=== PATIENT | male | born 1945 | race Caucasian/White ===

== ENCOUNTER → 2018-06-17 14:43 | Outpatient (CLI) | payer MEDICARE, OTHER ==
[2009-07-15 07:54] VITALS: BMI 33.9
== END | disposition home or self-care (01) ==
LOC: D.MRI 14:43
DX: M54.5 Low back pain (principal); Z87.891 Personal history of nicotine dependence

== ENCOUNTER → 2018-10-01 11:22 | Outpatient (CLI) | payer MEDICARE, OTHER ==
[2009-07-15 07:54] VITALS: BMI 33.9
[2018-10-01 12:26] LABS: BASOPHILS 0.3 % (0-2); EOSINOPHILS 1.5 % (0-7); HEMATOCRIT 38.2 % (42.0-54.0); HEMOGLOBIN 12.7 g/dL (13.5-17.5); IMMATURE GRANULOCYTES 0.7 % (0-5); LYMPHOCYTES 14.3 % (15-50); MCH 28.7 pg (26.0-34.0); MCHC 33.2 g/dL (31.0-37.0); MCV 86.4 fL (80.0-100.0); MEAN PLATELET VOLUME 10.1 fL (7.4-10.4); MONOCYTES 7.7 % (2-11); NEUTROPHILS 75.5 % (40-80); PLATELET COUNT 112 10x3/uL (130-400); RBC 4.42 10x6/uL (4.20-6.10); RDW 13.4 % (11.5-14.5); WBC 6.8 10x3/uL (4.8-10.8)
[2018-10-01 12:41] LABS: INR 1.07 (0.85-1.17); PROTIME 13.4 SECONDS (11.6-15.0)
[2018-10-01 12:59] LABS: ALBUMIN 3.8 g/dL (3.4-5.0); ANION GAP 7.9 mmol/L (8-16); BILIRUBIN - TOTAL 0.57 mg/dL (0.2-1.3); CALCIUM 9.1 mg/dL (8.5-10.1); CARBON DIOXIDE 31.1 mmol/L (21.0-32.0); CREATININE - SERUM 1.3 mg/dL (0.6-1.3); PROTEIN - SERUM 7.2 g/dL (6.4-8.2)
== END | disposition home or self-care (01) ==
LOC: D.LAB 11:22
PROVIDERS: ATTEND Urology
DX: N40.1 Benign prostatic hyperplasia with lower urinary tract symptoms (principal); N13.30 Unspecified hydronephrosis; C64.9 Malignant neoplasm of unspecified kidney, except renal pelvis

== ENCOUNTER 2018-10-29 10:44 | Outpatient (CLI) | payer MEDICARE, OTHER ==
[~2018-10-29] VITALS: Ht 175.3 cm; Wt 95.5 kg
[2018-10-29 11:01] LABS: BASOPHILS 0.4 % (0-2); EOSINOPHILS 2.4 % (0-7); HEMATOCRIT 36.5 % (42.0-54.0); HEMOGLOBIN 12.4 g/dL (13.5-17.5); IMMATURE GRANULOCYTES 1.4 % (0-5); LYMPHOCYTES 19.1 % (15-50); MCH 29.4 pg (26.0-34.0); MCV 86.5 fL (80.0-100.0); MEAN PLATELET VOLUME 11.2 fL (7.4-10.4); MONOCYTES 9.7 % (2-11); RBC 4.22 10x6/uL (4.20-6.10)
[2018-10-29 11:04] LABS: PLATELET COUNT 160 10x3/uL (130-400)
[2018-10-29 11:07] LABS: ANION GAP 9.9 mmol/L (8-16); CALCIUM 8.6 mg/dL (8.5-10.1); CARBON DIOXIDE 30.6 mmol/L (21.0-32.0); CREATININE - SERUM 1.2 mg/dL (0.6-1.3); POTASSIUM - SERUM 4.5 mmol/L (3.5-5.1)
[2018-10-29 11:12] LABS: APTT 24.7 SECONDS (22.8-39.4); INR 1.04 (0.85-1.17); PROTIME 13.1 SECONDS (11.6-15.0)
[2018-10-29] MEDS ORDERED: COREG25 MG PO ×2 (11:56)
[2018-10-29] MEDS ORDERED: COZAAR50 MG PO (11:56)
[2018-10-29] MEDS ORDERED: FISH OIL 1,0001 CA1 PO (11:57)
[2018-10-29] MEDS ORDERED: BAYER CHEWABLE81 MG PO (11:57)
[2018-10-29] MEDS ORDERED: LISINOPRIL10 MG PO (11:57)
[2018-10-29 12:12] VITALS: BP 149/62; Ht 175.3 cm; Wt 95.5 kg
--- NOTE | 2018-10-29 13:51 | NUR ---
1345 RETURNED TO 2511 PROCEDURE WAS CANCELLED DUE TO PT HAS NOT BEEN OFF ASPRIN. IV DC'D WITH CATH INTACT. FLUIDS OFFERED AND DECLINED. RELEASED AMBULATORY WITH . MADINA RETURNED TO PT.
== END 2018-10-29 13:50 | disposition home or self-care (01) ==
LOC: D.SP 10:44 → D.RAD 14:00
PROVIDERS: Radiology Diagnostic Radiology; ATTEND Urology
DX: R19.00 Intra-abdominal and pelvic swelling, mass and lump, unspecified site (principal); Z53.8 Procedure and treatment not carried out for other reasons; Z01.812 Encounter for preprocedural laboratory examination

== ENCOUNTER 2018-11-06 05:55 | Outpatient (CLI) | payer MEDICARE, OTHER ==
[~2018-11-06] VITALS: Ht 175.3 cm; Wt 90.7 kg
[~2018-11-06 05:55] MED LIST: BAYER CHEWABLE81 MG PO; COREG25 MG PO; COZAAR50 MG PO; FISH OIL 1,0001 CA1 PO; LISINOPRIL10 MG PO
[2018-11-06 06:17] LABS: BASOPHILS 0.6 % (0-2); EOSINOPHILS 2.6 % (0-7); HEMATOCRIT 37.4 % (42.0-54.0); HEMOGLOBIN 12.7 g/dL (13.5-17.5); IMMATURE GRANULOCYTES 0.7 % (0-5); LYMPHOCYTES 18.9 % (15-50); MCH 29.1 pg (26.0-34.0); MCV 85.6 fL (80.0-100.0); MEAN PLATELET VOLUME 11.6 fL (7.4-10.4); MONOCYTES 9.8 % (2-11); NEUTROPHILS 67.4 % (40-80); PLATELET COUNT 169 10x3/uL (130-400); RBC 4.37 10x6/uL (4.20-6.10); RDW 13.7 % (11.5-14.5); WBC 5.4 10x3/uL (4.8-10.8)
[2018-11-06 06:27] LABS: APTT 26.8 SECONDS (22.8-39.4); INR 1.08 (0.85-1.17); PROTIME 13.5 SECONDS (11.6-15.0)
[2018-11-06 06:41] LABS: ANION GAP 12.3 mmol/L (8-16); CALCIUM 8.7 mg/dL (8.5-10.1); CREATININE - SERUM 1.2 mg/dL (0.6-1.3); POTASSIUM - SERUM 4.3 mmol/L (3.5-5.1)
[2018-11-06 06:50] VITALS: BP 125/65; BMI 29.6
--- NOTE | 2018-11-06 10:03 | NUR ---
0925-RECD FROM IR. DROWSY BUT AROUSES EASILY. DENIES PAIN.
--- NOTE | 2018-11-06 12:45 | NUR ---
1200-UP TO BATHROOM, VOIDS. AMBULATES IN ROOM. IV D/C 1230-DISCHARGE INSTRUCTIONS REVIEWED. DENIES PAIN, DRESSING CLEAN, DRY AND INTACT. 1235-D/C HOME WITH VIA WHEELCHAIR
[2018-11-11 13:42] VITALS: BP 125/65; Ht 175.3 cm; Wt 90.7 kg
== END 2018-11-06 12:35 | disposition home or self-care (01) ==
LOC: D.SP 05:55
PROVIDERS: Radiology Vascular & Interventional Radiology; ATTEND Urology
DX: D41.02 Neoplasm of uncertain behavior of left kidney (principal)

== ENCOUNTER 2018-11-13 05:40 | Day surgery (SDC) | payer MEDICARE, OTHER ==
[2018-11-06 07:10] VITALS: BP 125/65; BMI 29.6
[2018-11-11 11:42] LABS: BASOPHILS 0.4 % (0-2); EOSINOPHILS 2.8 % (0-7); HEMATOCRIT 35.7 % (42.0-54.0); HEMOGLOBIN 12.1 g/dL (13.5-17.5); IMMATURE GRANULOCYTES 0.6 % (0-5); LYMPHOCYTES 14.9 % (15-50); MCH 29.2 pg (26.0-34.0); MCHC 33.9 g/dL (31.0-37.0); MEAN PLATELET VOLUME 11.1 fL (7.4-10.4); MONOCYTES 11.5 % (2-11); NEUTROPHILS 69.8 % (40-80); PLATELET COUNT 150 10x3/uL (130-400); RBC 4.15 10x6/uL (4.20-6.10); RDW 13.6 % (11.5-14.5)
[2018-11-11 11:58] LABS: ANION GAP 10.8 mmol/L (8-16); APTT 27.7 SECONDS (22.8-39.4); CALCIUM 8.7 mg/dL (8.5-10.1); CARBON DIOXIDE 28.8 mmol/L (21.0-32.0); CREATININE - SERUM 1.3 mg/dL (0.6-1.3); INR 1.09 (0.85-1.17); POTASSIUM - SERUM 4.6 mmol/L (3.5-5.1); PROTIME 13.6 SECONDS (11.6-15.0)
[2018-11-13 06:19] VITALS: BP 141/67; BMI 32.1
--- NOTE | 2018-11-13 09:14 | NUR ---
0910 DR. DEAN ROUNDS ON PT.
--- NOTE | 2018-11-13 09:23 | NUR ---
0920 UP TO BR VOIDS QS. FL DIET SERVED.
--- NOTE | 2018-11-13 09:49 | OP ---
PATIENT NAME: EUGENIA GUTIERREZ MEDICAL RECORD: [id number] :45 LOCATION:.[facility] [place] [place] ADMISSION DATE: SURGEON: PAULO DEAN MD DATE OF OPERATION: 11/13/2018 SURGEON: Paulo Dean MD ANESTHESIA: TIVA by Neel Humphries CRNA DIAGNOSIS: Elevated PSA of 3.17 on finasteride, bladder outlet obstruction with right hydronephrosis. PROCEDURES: Cystoscopy, transrectal ultrasound and prostate biopsy. FINDINGS: Obstructive lateral lobes, very tall bladder neck that I could barely get the scope through. Large prostate of 140 grams on transrectal ultrasound with some intraprostatic stones, no hypoechoic areas. PROCEDURE: Cystoscopy and transrectal ultrasound and prostate biopsy. SPECIMENS: Prostate biopsy cores. BLOOD LOSS: Minimal. CLINICAL HISTORY: This is a 72-year-old male, who has previously had a left nephrectomy for renal cell carcinoma. The latest CT scan shows a left retroperitoneal mass in the left renal fossa. I had this biopsied and it turned out to be normal renal tissue without any cancer. He has obstructive voiding symptoms even though he has been on finasteride and Flomax. He has now started to develop a mild right hydronephrosis. Serum PSA was 3.17 on finasteride and tamsulosin. His IPSS score is 17 and quality of life score is 2 on both these medications. The PSA is typically halved when the patient is on finasteride, thus his corrected PSA if he was not on finasteride would be 6.34. Therefore, we are proceeding with a prostate biopsy. HE IS ALLERGIC TO SULFA AND SHELLFISH. He was given Ancef contract runner to the OR. DESCRIPTION OF PROCEDURE: The patient was given IV sedation. He was then placed in the lithotomy position and prepped and draped. A 21-Vincentian cystoscope was used for visualization. The lateral lobes are obstructive towards the base of the prostate. The bladder neck is extremely tall and I could not deflect the scope sufficiently in order to enter into the bladder itself. We then removed the cystoscope. The transrectal ultrasound probe was introduced. The prostate was extremely large in size. We first had an estimate of 148 grams, then a second estimate was 135 grams, so roughly he is somewhere around 140 grams by averaging. Sextant biopsies were obtained of at least 3 cores from each sextant. Once all the specimens were obtained, then the procedure was terminated. I will see the patient in followup next week to review his pathology. If the pathology is benign, then he will probably need a TURP due to the excessively large size of his prostate. TRANSINT:[id number] Voice Confirmation ID: [id number] DOCUMENT ID: [id number] OPERATIVE REPORT [id number] EUGENIA GUTIERREZ, PAULO Adams MD at 0949 CC: [id number] DICTATION DATE: 11/13/18907 DELIVERY DEPARTMENT SUPERVISOR: 11/13/189[address] [facility] [place] 11/13/18 [id number] [place] [address]
== END 2018-11-13 09:45 | disposition home or self-care (01) ==
LOC: D.OPS 05:40 → D.PAN 07:30 → D.OPS 08:00 → D.PAN 08:15 → D.OPS 09:45 → D.PAN 10:50 → D.OPS 11:30 → D.PAN 11:30 → D.OPS 11:40
PROVIDERS: Anesthesiology; ATTEND Urology
DX: N42.0 Calculus of prostate (principal); N40.1 Benign prostatic hyperplasia with lower urinary tract symptoms; N13.8 Other obstructive and reflux uropathy; N13.30 Unspecified hydronephrosis; N41.1 Chronic prostatitis; Z85.528 Personal history of other malignant neoplasm of kidney; Z90.5 Acquired absence of kidney; Z01.812 Encounter for preprocedural laboratory examination

== ENCOUNTER → 2018-12-15 16:09 | Outpatient (CLI) | payer MEDICARE, OTHER ==
[2018-12-15 16:33] LABS: CREATININE - SERUM 1.5 mg/dL (0.6-1.3)
== END | disposition home or self-care (01) ==
LOC: D.LABREF 16:09
PROVIDERS: ATTEND Internal Medicine Interventional Cardiology
DX: N28.9 Disorder of kidney and ureter, unspecified (principal)

== ENCOUNTER → 2018-12-18 08:39 | Outpatient (CLI) | payer MEDICARE, OTHER ==
[~2018-12-18 08:39] MED LIST changes: +LIPITOR40 MG PO; +NORVASC5 MG PO; +PLAVIX75 MG PO; +PROZAC10 MG PO
== END | disposition home or self-care (01) ==
LOC: D.CT 08:39
PROVIDERS: ATTEND Internal Medicine Interventional Cardiology
DX: I70.213 Atherosclerosis of native arteries of extremities with intermittent claudication, bilateral legs (principal)

== ENCOUNTER 2018-12-31 08:53 | Outpatient (CLI) | payer MEDICARE, OTHER ==
[~2018-12-31] VITALS: Ht 175.3 cm; Wt 90.9 kg
--- NOTE | ~2018-12-31 | OP ---
PATIENT NAME: EUGENIA GUTIERREZ MEDICAL RECORD: [id number] :45 LOCATION:[facility] ADMISSION DATE: SURGEON: ANT ALFORD MD DATE OF OPERATION: 12/31/2018 PROCEDURES: 1. Stent placement SFA, right. 2. LIFE INSURANCE UNDERWRITER SFA, right. 3. Aortofemoral runoff. 4. Abdominal aortography. INDICATION: Claudication, [place] class IV peripheral vascular disease. PROCEDURE IN DETAIL: After informed consent was obtained and after a detailed description of risks, benefits as well as alternative therapies, the patient elected to proceed with angiogram and angioplasty. The left femoral area was prepped and draped in normal sterile fashion. Left femoral artery was cannulated via modified Seldinger technique with placement of 6-Malay sheath. All catheters exchanged through this sheath. FINDINGS: Abdominal aortography was performed. The catheter was pulled down for aortofemoral runoff. Abdominal aortography reveals no significant abdominal aortic disease, no dissection or aneurysm formation. RIGHT LEG: A. Iliac: The common internal and external iliacs have moderate irregularities, but no flow-limiting stenosis. B. Femoral system: The common femoral is in place with what appears to be a [place]-Jeb graft. This is widely patent. Deep femorals are widely patent. Superficial femoral has 2 areas in the mid vessel 70% stenosis. C. Popliteal and infrapopliteal vessels are patent with good 3-vessel runoff to the foot. LEFT LEG: A. Iliac: The common internal and external iliacs have moderate irregularities, but no flow-limiting stenosis. B. Femoral system: The common and deep femoral are widely patent. Superficial femoral has an area of 70% stenosis in the mid distal vessel. Popliteal and infrapopliteal vessels are patent giving 3-vessel runoff to the foot, although diffusely diseased. LIFE INSURANCE UNDERWRITER STENT OF THE RIGHT SFA: The balloon used was a 6 x 80 balloon. This yielded suboptimal result with severe intimal dissection. Stenting was undertaken with a 7 x 120 SMART stent. Result was 0% residual stenosis. OVERALL IMPRESSION: Successful LIFE INSURANCE UNDERWRITER stent of the right SFA going from 70% initial stenosis to 0% residual. TRANSINT:[id number] Voice Confirmation ID: [id number] DOCUMENT ID: [id number] OPERATIVE REPORT [id number] EUGENIA GUTIERREZ JEFFREY MD CC: [id number] DICTATION DATE: 12/31/18 1200 GEARMAN: 12/31/18 1209 [facility] 0 [facility], [facility]
--- NOTE | ~2018-12-31 | HEMODYNAMI ---
PATIENT:EUGENIA GUTIERREZ MEDICAL RECORD: [id number] : 45 LOCATION:[facility] ADMISSION DATE: 12/31/18 Generatedon:12/31/201811:39 Patient name: EUGENIA GUTIERREZ Patient #: [id number] SSN: [id number] : 1945 Date of study: 12/31/2018 Page: Of Hemodynamic Procedure Report Patient Data Patient Demographics Procedure consent was obtained First Name: EUGENIA Gender: Male Last Name: BRENDA : 1945 Patient #: [id number] Age: 73 year(s) Race: SSN: [id number] Additional ID: [id number] Contact details [address]: [address] [place] [address] COURT State: [place] City: [place] Zip code: [address] Past Medical History Allergies Allergen Reaction Date Comments Reported Other allergy 12/31/2018 shellfish, sulfa Admission Admission Data Admission Date: 12/31/2018 Admission Time: 8:53 Admit Source: Other Lab Results Lab Result Date: 12/31/2018 Lab Result Time: 9:40 Biochemistry Name Units Result Min Max BUN mg/dl 15 --(--*-)-- 7 18 Creatinine mg/dl 1.5 --(----)-* 0.6 1.3 CBC Name Units Result Min Max Hematocrit % 39.8 -*(----)-- 42 54 Hemoglobin g/dl 13.3 -*(----)-- 13.5 17.5 Procedure Procedure Types Cath Procedure Diagnostic Procedure Sedation Charges Moderate Sedation up to 15 minutes Peripheral Cath Diagnostic Procedure Public Policy Analyst Peripheral Procedures Awksd-Fnlewzn-Sro-Off Peripheral vascular Intervention Stent Stent-Fem/Popw/plasty Procedure Description Procedure Date Procedure Date: 12/31/2018 Procedure Start Time: 11:07 Procedure End Time: 11:32 Procedure Staff Name Function Obed Pizarro MD Performing Physician Alon Sánchez RT Monitor Nahum Miller RT Scrub Zackary Lorigan RN Nurse Procedure Data Cath Procedure Fluoroscopy Diagnostic fluoroscopy Total fluoroscopy Time: 5.1 time: 5.1 min min Diagnostic fluoroscopy Total fluoroscopy dose: 204 dose: 204 mGy mGy Contrast Material Contrast Material Type Amount (ml) Isovue 300 92 Entry Location Entry Primary Successful Side Size Upsize 1 Upsize Entry Closure Barakat ccessful Closure Location (Fr) (Fr) 2 (Fr) Remarks Device Remarks Femoral Left 5 Fr 6 Fr 6 Fr Exoseal artery Mid-Length Short Estimated blood loss: 10 ml Diagnostic catheters Device Type Used For End Catheter Placement DIAGNOSTIC UF 5Fr Procedure catheter ([id number]) DIAGNOSTIC MPA-2 5Fr Procedure catheter ([id number]) Procedure Complications No complications Procedure Medications Medication Administration Route Dosage 0.9% NaCl I.V. 100 ml/hr Oxygen etCO2 Nasal cannula 2 l/min Heparin Flush Bag added to field 2 bags (1000units/500ml NS) Lidocaine 2% added to field 20 Versed I.V. 2 mg Fentanyl I.V. 100 mcg Heparin Bolus I.V. 4000 units Integrilin (Bolus I.V. 8.5 ml 2mg/ml) Integrilin (Bolus wasted 1.5 ml 2mg/ml) Plavix P.O. 600 mg Hemodynamics Rest HGB: 13.3 (g/dl) Heart Rate: 72 (bpm) Snapshots Pre Cath Intra NCS Post Cath Vital Signs Time Heart Resp SPO2 etCO2 NIBP (mmHg) Rhythm Pain Sedation Rate (ipm) (%) (mmHg) Status Level (bpm) 10:52:30 72 10 100 35.8 158/76(128) NSR 0 (11) 10(A) , No pain 10:57:56 74 17 99 33.6 154/76(119) NSR 0 (11) 10(A) , No pain 11:02:18 71 14 96 34.3 144/68(106) NSR 0 (11) 10(A) , No pain 11:06:40 71 15 95 32.8 137/66(102) NSR 0 (11) 10(A) , No pain 11:10:46 73 14 97 35.1 110/68(101) NSR 0 (11) 9(A) , No pain 11:15:57 71 13 98 133/65(100) NSR 0 (11) 9(A) , No pain 11:20:26 70 13 98 114/65(109) NSR 0 (11) 9(A) , No pain 11:24:50 71 13 97 35.1 123/57(90) NSR 0 (11) 10(A) , No pain 11:29:14 69 12 98 25.4 138/63(105) NSR 0 (11) 10(A) , No pain 11:33:38 71 15 98 26.9 140/71(112) NSR 0 (11) 10(A) , No pain Medications Time Medication Route Dose Verified Delivered Reason Notes Effectiveness by by 10:54:44 0.9% NaCl I.V. 100 Zackary Zackary Per physician ml/hr Monica Anderson RN RN 10:55:01 Oxygen etCO2 2 Zackary Zackary for low 02 sats Nasal l/min Monica Anderson cannula RN RN 10:55:12 Heparin Flush added 2 Zackary Zackary used for Bag to bags Monica Anderson procedure (1000units/500ml RN RN NS) 10:55:26 Lidocaine 2% added 20ml Zackary Zackary for local to vial Monica Anderson anesthetic RN RN 11:05:40 Versed I.V. 2 mg Zackary Zackary for sedation Monica Anderson RN RN 11:05:51 Fentanyl I.V. 100 Zackary Zackary for sedation mcg Monica Anderson RN RN 11:20:46 Heparin Bolus I.V. 4000 Zackary Zackary for units Monica Anderson anticoagulation RN RN 11:21:08 Integrilin I.V. 8.5 Zacakry Zackary for (Bolus 2mg/ml) ml Monica Anderson antiplatelet RN RN therapy 11:21:20 Integrilin wasted 1.5 Zackary Zackary to sharp's (Bolus 2mg/ml) ml Monica Anderson RN RN 11:31:41 Plavix P.O. 600 Zackary Zackary for mg Monica Anderson antiplatelet RN RN therapy Procedure Log Time Note 10:25:01 Nahum CASTREJON(R) (CV) sent for patient. Start room use. 10:37:17 Informed consent obtained and on chart 10:44:43 Admit Source: Other 10:44:59 Procedure Status Peripheral. 10:45:33 Time tracking: Regular hours (M-F 7:00 - 5:00) 10:45:44 Plan of Care:Hemodynamics will remain stable., Cardiac rhythm will remain stable., Comfort level will be maintained., Respiratory function will remain adequate., Patient/ family verbilizes understanding of procedure., Procedure tolerated without complication., Recovers from procedure without complications.. 10:45:47 Patient received from Pre/Post Procedure Room to CCL 1 Alert and oriented. Tansferred to table in Supine position. 10:45:49 Warm blankets applied, and aguila hugger turned on for patient comfort. 10:45:50 Correct patient and procedure confirmed by team. 10:45:50 ECG and BP/O2 sat monitors applied to patient. 10:45:51 Pre-procedure instructions explained to patient. 10:45:52 Pre-op teaching completed and patient verbalized understanding. 10:51:12 Baseline sample Acquired. 10:51:12 Vital chart was started 10:51:14 Rhythm: sinus rhythm 10:51:16 Full Disclosure recording started 10:51:25 H&P Date Dictated: 12/15/2018 Within 30 days and on chart., H&P Addendum completed by physician on day of procedure. (MUST COMPLETE FOR ALL OUTPATIENTS). 10:51:27 Family in waiting room. 10:51:29 Patient NPO since Midnight. 10:51:40 Patient allergic to Other allergyshellfish, sulfa 10:51:41 Is the patient allergic to Iodine/contrast media? Yes. 10:51:47 Was the patient premedicated? Yes 10:54:44 0.9% NaCl 100 ml/hr I.V. was administered by Zackary Anderson RN; Per physician; 10:55:01 Oxygen 2 l/min etCO2 Nasal cannula was administered by Zackary Anderson RN; for low 02 sats; 10:55:12 Heparin Flush Bag (1000units/500ml NS) 2 bags added to field was administered by Zackary Anderson RN; used for procedure; 10:55:26 Lidocaine 2% 20ml vial added to field was administered by Zackary Anderson RN; for local anesthetic; 10:56:21 Is patient on blood thinner?No 10:58:23 Patient diabetic? No. 10:58:28 Previous problem with sedation/anesthesia? No ? 10:58:31 Snore? Yes 10:58:32 Sleep apnea? No 10:58:33 Deviated septum? No 10:58:33 Opens mouth fully? Yes 10:58:34 Sticks out tongue? Yes 10:58:36 Airway obstruction? No ? 10:58:39 Dentures? No . 10:58:43 Pre procedure: right dorsailis pedis pulse Doppler 10:58:45 Pre procedure: left dorsailis pedis pulse Doppler 10:58:47 Patient pain scale 0/10 ?. 10:58:53 IV patent on arrival in left forearm with 0.9% NaCl at [facility]. 10:59:22 Lab Result : BUN 15 mg/dl 10:59:22 Lab Result : Creatinine 1.5 mg/dl 10:59:22 Lab Result : Hemoglobin 13.3 g/dl 10:59:22 Lab Result : Hematocrit 39.8 % 10:59:23 Lab results completed and on chart. 10:59:29 Left groin area was prepped with chlora-prep and draped in sterile fashion 10:59:30 Alarms reviewed by R. N. 10:59:30 Sharps counted by scrub and verified by R.N. 10:59:37 ACIST Syringe (33964) opened to sterile field. 10:59:37 Bag Decanter (2002S) opened to sterile field. 10:59:38 Medline Cath Pack ([id number]) opened to sterile field. 10:59:39 ACIST Hand Control (20072) opened to sterile field. 10:59:39 ACIST Manifold (05742) opened to sterile field. 10:59:41 Tegaderm 4 x 4 (1626W) opened to sterile field. 10:59:43 EMERALD Guide Wire (447-899) opened to sterile field. 10:59:43 SHEATH 5FR [place] (TRM849) opened to sterile field. 11:03:04 Zero performed for pressure channel P1 11:04:59 Physician arrived 11:05:00 --------ALL STOP TIME OUT------ 11:05:00 Final Timeout: patient, procedure, and site verified with staff and physician. All members of the team are in agreement. 11:05:02 Left groin site verified by team. 11:05:04 Fire Safety Assessment: A--An alcohol-based skin anteseptic being used preoperatively., C--Open oxygen or nitrous oxide is being used., D--An ESU, laser, or fiber-optic light is being used. 11:05:07 Physical assessment completed. ASA score P 2 - A patient with mild systemic disease as per Obed Pizarro MD. 11:05:16 3a) 45-59 Moderately reduced kidney function. 11:05:34 Maximum allowable contrast dose (3.7 X eGFR X 0.75)136 ml. 11:05:37 Sedation plan: IV Moderate Sedation Medication:Versed, Fentanyl 11:05:40 Versed 2 mg I.V. was administered by Zackary Anderson RN; for sedation; 11:05:51 Fentanyl 100 mcg I.V. was administered by Zackary Anderson RN; for sedation; 11:07:51 Procedure started. 11:07:54 Local anesthetic to left femerol artery with Lidocaine 2% by Obed Pizarro MD.INITIAL ACCESS ONLY 11:09:53 A 5 Fr sheath was inserted into the Left Femoral artery 11:10:03 A DIAGNOSTIC UF 5Fr catheter ([id number]) was advanced over the wire and used for Procedure. 11:10:55 Abdominal angiogram w/ runoff was performed. 11:10:58 Left leg runoff performed. 11:14:38 Right leg runoff performed. 11:14:57 GLIDE WIRE Super Stiff Angled 260cm (MZ2591) opened to sterile field. 11:14:58 SHEATH 6FR Destination (RSR01) opened to sterile field. 11:14:59 INFLATOR Merit BasixCompak (FX9724) opened to sterile field. 11:15:35 glide wire wire advanced around horn. 11:15:45 Catheter removed. 11:15:48 Sheath upsized to a 6 Fr Mid-Length. 11:15:54 SHEATH 6FR [place] (FOA352) opened to sterile field. 11:16:21 CHOICE Floppy Straight 300cm guide wire ([id number]) opened to sterile field. 11:17:35 A DIAGNOSTIC MPA-2 5Fr catheter ([id number]) was advanced over the wire and used for Procedure. 11:18:52 Wire removed. 11:19:42 choice pt es wire advanced. 11:20:46 Heparin Bolus 4000 units I.V. was administered by Zackary Anderson RN; for anticoagulation; 11:21:08 Integrilin (Bolus 2mg/ml) 8.5 ml I.V. was administered by Zackary Anderson RN; for antiplatelet therapy; 11:21:20 Integrilin (Bolus 2mg/ml) 1.5 ml wasted was administered by Zackary Anderson RN; to sharp's; 11:21:56 Inflate balloon Inflation number: 1 A SABER 6.0 x 8 x 150 balloon ([id number]) was prepped and advanced across the Mid Superficial Femoral, Right , then inflated to 9 JOSE for 0:10 (min:sec) . 11:22:00 Inflation number: 2 The SABER 6.0 x 8 x 150 balloon ([id number]) was reinflated across the Mid Superficial Femoral, Right , to 9 JOSE for 0:10 (min:sec) . 11:22:24 Balloon removed over the wire. 11:24:35 SMART 7 X 120 X 120 stent ([id number]) was deployed across Mid Superficial Femoral, Right . 11:26:18 Stent catheter was removed intact over wire. 11:26:55 Inflation number: 3 The SABER 6.0 x 8 x 150 balloon ([id number]) was reinflated across the Mid Superficial Femoral, Right , to 13 JOSE for 0:10 (min:sec) . 11:27:20 Inflation number: 4 The SABER 6.0 x 8 x 150 balloon ([id number]) was reinflated across the Mid Superficial Femoral, Right , to 13 JOSE for 0:10 (min:sec) . 11:27:44 EXOSEAL 6Fr (EX600) opened to sterile field. 11:29:05 Balloon removed over the wire. 11:29:06 Wire removed. 11:29:13 Sheath upsized to a 6 Fr Short. 11:29:21 Sheath removed intact; hemostasis achieved with Exoseal to the Left Femoral artery. 11:29:26 Procedure ended.(Physican Out) 11:29:34 Fluoroscopy time 05.10 minutes. 11:29:37 Flurop Dose total: 204 11::37 Fluoroscopy dose: 204 mGy 11:29:46 Dose Area Product 95774 mGy/cm. 11:29:50 Contrast amount:Isovue 300 92ml. 11:29:52 Maximum allowable dose exceeded? No. 11:30:01 Sharps counted by scrub and verified by R.N. 11:30:01 Insertion/operative site no bleeding no hematoma. 11:30:04 Post-op/insertion site Left Femoral artery dressed using a 4 x 4 and Tegaderm. 11:30:09 Post left femerol artery:stable, soft, clean and dry 11:30:10 Post Procedure Pulses reassessed and unchanged 11:30:34 Post-procedure physical assessment completed. ASA score P 2 - A patient with mild systemic disease as per Obed Pizarro MD. 11:30:45 Post procedure rhythm: unchanged. 11:30:51 Estimated blood loss: 10 ml 11:30:52 Post procedure instruction explained to patient.Patient verbalizes understanding. 11:30:53 Patient needs reinforcement of post procedure teaching. 11:31:41 Plavix 600 mg P.O. was administered by Zackary Anderson RN; for antiplatelet therapy; 11::56 Procedure type changed to Cath procedure, Diagnostic procedure, Sedation Charges, Moderate Sedation up to 15 minutes, Peripheral Cath Diagnostic Procedure, Public Policy Analyst Peripheral Procedures, Sqwqm-Gqbjptm-Wwb-Off, Peripheral vascular Intervention, Stent, Stent-Fem/Popw/plasty 11:32:36 Procedure and supply charges have been captured, reviewed, submitted and are correct. 11:32:38 Procedure Complication : No complications 11:32:40 Vital chart was stopped 11:32:40 See physician's report for complete and final results. 11:32:42 Report given to Pre/Post Procedure Room. 11:32:44 Patient transfered to Pre/Post Procedure Room with Stretcher. 11:32:48 Procedure ended. 11:32:48 Full Disclosure recording stopped 11::56 End room use (Document Last) 11:38:53 Femstop placed over the right femoral artery at 10 mmHg. Hemostasis achieved. Intervention Summary Intervention Notes Time ActionType Lesion and Equipment Action# Pressure Duration Attributes Used 11:21:56 Inflate Mid SABER 6.0 x 1 9 00:10 balloon Superficial 8 x 150 Femoral, balloon Right ([id number]) 11:22:00 Reinflate Mid SABER 6.0 x 2 9 00:10 balloon Superficial 8 x 150 Femoral, balloon Right ([id number]) 11:24:35 Deploy self Mid SMART 7 X 1 expanding Superficial 120 X 120 stent Femoral, stent Right ([id number]) 11:26:55 Reinflate Mid SABER 6.0 x 3 13 00:10 balloon Superficial 8 x 150 Femoral, balloon Right ([id number]) 11:27:20 Reinflate Mid SABER 6.0 x 4 13 00:10 balloon Superficial 8 x 150 Femoral, balloon Right ([id number]) Device Usage Item Name Manufacture Quantity Catalog Hospital Part Current Minima l Lot# / Number Charge Number Stock Stock Serial# Code ACIST Acist 1 60025 110518 264897 688598 20 Syringe Medical (98194) Systems Inc Bag Microtek 1 306114 52437 822032 5 Decanter Medical Inc. () Medline Medline 1 [id number] 490827 74992 384026 5 Cath Pack ([id number]) ACIST Hand Acist 1 59738 430099 819498 986498 5 Control Medical (65380) Systems Inc ACIST Acist 1 57546 626590 334285 576602 5 Manifold Medical (85295) Systems Inc Tegaderm 4 3M 1 1626W 165310 739111 748219 5 x 4 (1626W) EMERALD Cardinal 1 502-455 531091 667775 026763 5 Guide Wire Health (502-455) SHEATH 5FR Terumo 1 WTN893 548189 618051 346572 5 [place] (PAJ218) DIAGNOSTIC Cardinal 1 [id number] 429297 713807 431124 10 UF 5Fr Health catheter (658867Y5) GLIDE WIRE Terumo 1 TM6616 495948 299828 849059 5 Super Stiff Angled 260cm (UF7034) SHEATH 6FR Terumo 1 RSR01 413219 95705 173550 5 Destination (RSR01) INFLATOR Merit 1 NT6738 642167 569416 994463 15 Merit Medical BasixCompak (IZ2570) SHEATH 6FR Terumo 1 QNX586 730534 136619 005766 40 [place] (UEU806) CHOICE [place] 1 [id number] 757334 638280 622694 5 Tivixy Scientific Straight 300cm guide wire (74764644) DIAGNOSTIC Cardinal 1 [id number] 926836 138802 311289 5 MPA-2 5Fr Health catheter (195589E) SABER 6.0 x Cardinal 1 [id number] 034649 256051 098513 5 8 x 150 Health balloon ([id number]) SMART 7 X Cardinal 1 [id number] 944362 964625 796890 0 [id number] 120 X 120 Health stent ([id number]) EXOSEAL 6Fr Cardinal 1 EX600 430689 693624 960393 10 (EX600) Health Signature Audit [place] Stage Time Signature Unsigned Intra-Procedure 12/31/2018 Alon Sánchez 11:39:38 AM RT(R) Signatures Performing Physician : Signature : Obed Pizarro MD Date : Time : Monitor : Alon Sánchez RT Signature : Date : Time : Nurse : Zackary Anderson Signature : RN Date : Time : [address] [address]
[~2018-12-31 08:53] MED LIST changes: -LIPITOR40 MG PO; -NORVASC5 MG PO; -PLAVIX75 MG PO; -PROZAC10 MG PO
[2018-12-31] MEDS ORDERED: LIPITOR40 MG PO (09:23)
[2018-12-31] MEDS ORDERED: NORVASC5 MG PO (09:23)
[2018-12-31] MEDS ORDERED: PROZAC10 MG PO (09:24)
[2018-12-31 09:43] VITALS: BP 128/62; Ht 175.3 cm; Wt 90.9 kg
[2018-12-31 09:57] LABS: HEMATOCRIT 39.8 % (42.0-54.0); HEMOGLOBIN 13.3 g/dL (13.5-17.5); LYMPHOCYTES 6.3 % (15-50); MCH 28.6 pg (26.0-34.0); MCHC 33.4 g/dL (31.0-37.0); MCV 85.6 fL (80.0-100.0); NEUTROPHILS 92.5 % (40-80); RBC 4.65 10x6/uL (4.20-6.10); RDW 13.5 % (11.5-14.5); WBC 7.7 10x3/uL (4.8-10.8)
[2018-12-31 09:59] LABS: PLATELET COUNT 182 10x3/uL (130-400)
[2018-12-31 10:03] LABS: ANION GAP 12.3 mmol/L (8-16); CALCIUM 8.5 mg/dL (8.5-10.1); CARBON DIOXIDE 23.2 mmol/L (21.0-32.0); CREATININE - SERUM 1.5 mg/dL (0.6-1.3); POTASSIUM - SERUM 4.5 mmol/L (3.5-5.1)
--- NOTE | 2018-12-31 11:45 | NUR ---
PT RECEIVED TO ROOM VIA STRETCHER FROM FIRE CONTROL ASSISTANT FOR RECOVERY. PT SLEEPING BUT VERBALLY AROUSABLE. L GROIN W FEMSTOP PRESSURE OF 34 JUST PLACED DUE TO PT MOVING AROUND SO MUCH. DRESSING CDI NO BLEEDING OR SWELLING NOTED. PEDAL PULSES UNABLE TO PALPABLE WILL GET DOPPLER. IV PATENT INFUSING VIA ORDERS. PT INSTRUCTED TO KEEP HEAD ON PILLOW AND L LEG STRAIGHT, HE VERBALIZED UNDERSTANDING. HR 73 W PVC'S NOTED. BP 139/56, O2 SAT 91 ON ROOM AIR. O2 PLACED VIA NC AT 2L. CALL LIGHT IN REACH, NO FAMILY AT BS.
[2018-12-31] MEDS ORDERED: BAYER CHEWABLE81 MG PO (12:03)
[2018-12-31] MEDS ORDERED: PLAVIX75 MG PO (12:03)
--- NOTE | 2018-12-31 12:16 | NUR ---
PT RESTING COMFORTABLY, DENIES PAIN OR DISCOMFORT. L GROIN W FEMSTOP IN PLACE, NO BLEEDING OR SWELLING NOTED. PT HOLDING L LEG STILL W/O PROBLEMS. OFFERED SOMETHING TO DRINK HE SAYS NOT AT THIS TIME. CALL LIGHT IN REACH
--- NOTE | 2018-12-31 13:00 | NUR ---
PT RESTING COMFORTABLY, DENIES PAIN OR NEEDS AT THIS TIME. R GROIN SOFT, DRESSING CDI NO BLEEDING OR SWELLING NOTED. CALL LIGHT IN REACH
--- NOTE | 2018-12-31 13:30 | NUR ---
DR ALFORD AT BEDSIDE, DISSCUSSED W PT PROCEDURE RESULTS AND PLAN OF CARE. PT WILL FOLLOW UP IN CLINIC IN 2 WEEKS. L GROIN SOFT, DRESSING CDI NO BLEEDING OR SWELLING NOTED. LEG PINK AND WARM. HR 72, BP 149/64, 02 SAT 99 ON 2L/NC. PT DENIES PAIN OR NEEDS. CALL LIGHT IN REACH
--- NOTE | 2018-12-31 14:03 | NUR ---
PT AWAKE, WANTING TO SIT UP I EXPLAINED THAT HE CANT YET HE UNDERSTANDS. L GROIN REMAINS SOFT, NO BLEEDING OR SWELLING NOTED. LEG PINK AND WARM. OFFERED A DRINK, HE STILL SAYS HE DOESNT WANT ANYTHING AT THIS TIME. CALL LIGHT IN REACH.
--- NOTE | 2018-12-31 14:30 | NUR ---
L GROIN SOFT, NO BLEEDING OR HEMATOMA NOTED. HOB ELEVATED 30DEGREES. SANDWICH TRAY AND SPRITE SERVED. PT DENIES PAIN OR DISCOMFORT. VSS. CALL LIGHT IN REACH
--- NOTE | 2018-12-31 15:00 | NUR ---
PT DOING WELL, NO C/O. TOLERATED SANDWICH AND DRINK W/O NAUSEA. VSS L GROIN SOFT, DRESSING REMAINS CDI NO BLEEDING OR SWELLING NOTED. VSS.
--- NOTE | 2018-12-31 15:20 | NUR ---
DISCHARGE INSTRUCTIONS REVIWED W PT, HE VERBALIZED UNDERSTANDING AND IMPORTANCE OF STARTING PLAVIX TOMORROW AND TAKING EVERY DAY. IV REMOVED W CATH INTACT, MONITORS REMOVED AND PT UP TO DRESS FOR DISCHARGE.
--- NOTE | 2018-12-31 15:30 | NUR ---
PT AMBULATED TO BR, VOIDING W/O DIFFICULITY. 1535 PT DISCHARGED VIA WC TO PRIVATE VEHICLE WITH ALL BELONGINGS
== END 2018-12-31 15:30 | disposition home or self-care (01) ==
LOC: D.CATH 08:53
PROVIDERS: ATTEND Internal Medicine Interventional Cardiology
DX: I70.213 Atherosclerosis of native arteries of extremities with intermittent claudication, bilateral legs (principal); Z01.812 Encounter for preprocedural laboratory examination

== ENCOUNTER → 2019-06-03 11:20 | Outpatient (CLI) | payer MEDICARE, OTHER ==
[2018-12-31 09:43] VITALS: BMI 29.6
[~2019-06-03 11:20] MED LIST changes: +LIPITOR40 MG PO; +NORVASC5 MG PO; +PLAVIX75 MG PO; +PROZAC10 MG PO
[2019-06-03 11:48] LABS: BASOPHILS 0.4 % (0-2); EOSINOPHILS 2.7 % (0-7); HEMOGLOBIN 11.8 g/dL (13.5-17.5); IMMATURE GRANULOCYTES 0.6 % (0-5); LYMPHOCYTES 20.5 % (15-50); MCH 29.8 pg (26.0-34.0); MCHC 32.8 g/dL (31.0-37.0); MCV 90.9 fL (80.0-100.0); MEAN PLATELET VOLUME 10.7 fL (7.4-10.4); MONOCYTES 9.2 % (2-11); NEUTROPHILS 66.6 % (40-80); PLATELET COUNT 159 10x3/uL (130-400); RBC 3.96 10x6/uL (4.20-6.10); RDW 14.7 % (11.5-14.5); WBC 5.1 10x3/uL (4.8-10.8)
[2019-06-03 12:24] LABS: ALBUMIN 3.6 g/dL (3.4-5.0); ANION GAP 12.9 mmol/L (8-16); BILIRUBIN - DIRECT 0.12 mg/dL (0.00-0.30); BILIRUBIN - INDIRECT 0.4 mg/dL (0.00-1.00); BILIRUBIN - TOTAL 0.52 mg/dL (0.2-1.3); CALCIUM 8.1 mg/dL (8.5-10.1); CARBON DIOXIDE 26.8 mmol/L (21.0-32.0); CREATININE - SERUM 1.2 mg/dL (0.6-1.3); POTASSIUM - SERUM 4.7 mmol/L (3.5-5.1); PROTEIN - SERUM 6.7 g/dL (6.4-8.2)
== END | disposition home or self-care (01) ==
LOC: D.LAB 11:20
PROVIDERS: ATTEND Urology
DX: C64.9 Malignant neoplasm of unspecified kidney, except renal pelvis (principal); N40.0 Benign prostatic hyperplasia without lower urinary tract symptoms

== ENCOUNTER → 2019-06-08 14:03 | Outpatient (CLI) | payer MEDICARE, OTHER ==
[2018-12-31 09:43] VITALS: BMI 29.6
== END | disposition home or self-care (01) ==
LOC: D.CT 14:03
PROVIDERS: ATTEND Urology
DX: Z85.528 Personal history of other malignant neoplasm of kidney (principal)

== ENCOUNTER → 2019-07-29 09:27 | Outpatient (CLI) | payer MEDICARE, OTHER ==
[2018-12-31 09:43] VITALS: BMI 29.6
--- NOTE | ~2019-07-29 | ST ---
PATIENT:EUGENIA GUTIERREZ MEDICAL RECORD: [id number] SEX: M LOCATION:[facility] ORDER #: ADMISSION DATE: 07/29/19 AGE OF PATIENT: 73 REFERRING PHYSICIAN: INTERPRETING PHYSICIAN: ANT ALFORD MD DATE OF SERVICE: 07/29/2019 INDICATION: Angina and coronary artery disease, shortness of breath, hypertension, and hyperlipidemia. He was exercised on standard Lexiscan protocol with 33 mCi of sestamibi injected at peak stress, 11 mCi used previously for rest images. FINDINGS: Gated SPECT reveals a preserved ejection fraction at 55% with good wall motion and thickening and brightening throughout all segments. SPECT imaging Cardiolite was used as myocardial perfusion agent. There is reversibility inferiorly and laterally, this includes the basal, mid, apical, inferior segments, apical lateral, mid lateral, basal lateral segments. The degree of reversibility is mild. The amount of myocardium involved is moderate to large. OVERALL IMPRESSION: This is an intermediate risk abnormal nuclear stress test with a rstmqtne-qt-jhcrb amount of myocardium involved with reversible ischemia inferiorly and laterally suggestive of hemodynamically significant coronary artery disease present. TRANSINT:[id number] Voice Confirmation ID: [id number] DOCUMENT ID: [id number] ANT ALFORD MD CC: HARRISON GANN [id number] DICTATION DATE: 07/30/19919 GASTROENTEROLOGIST: 07/31/19624 DEP CLI 07/29/19 [address] [place] [address]
== END | disposition home or self-care (01) ==
LOC: D.HCCARDIO 09:27
PROVIDERS: ATTEND Internal Medicine Interventional Cardiology
DX: I25.10 Atherosclerotic heart disease of native coronary artery without angina pectoris (principal)

== ENCOUNTER 2019-08-14 08:50 | Outpatient (CLI) | payer MEDICARE, OTHER ==
[~2019-08-14] VITALS: Ht 175.3 cm; Wt 99.5 kg
--- NOTE | ~2019-08-14 | OP ---
PATIENT NAME: EUGENIA GUTIERREZ MEDICAL RECORD: [id number] :45 LOCATION:D.CAT ADMISSION DATE: SURGEON: ANT ALFORD MD DATE OF OPERATION: 08/14/2019 PROCEDURES: 1. PTCA stent left circumflex. 2. IFR. 3. Left heart catheterization. 4. Selective coronary angiography. 5. Left ventriculogram. 6. Vein graft angiography. INDICATION: Angina and coronary artery disease. PROCEDURE IN DETAIL: After informed consent was obtained and after a detailed description of risks, benefits as well as alternative therapies, the patient elected to proceed with angiogram and angioplasty. The right femoral area was prepped and draped in normal sterile fashion. Right femoral artery was cannulated via modified Seldinger technique with placement of 6-[place] sheath. All catheters exchanged through this sheath. FINDINGS: Left ventriculogram was performed in standard 30-degree STEPHENSON view, reveals good cardiac wall motion, ejection fraction estimated at 60%. SELECTIVE CORONARY ANGIOGRAPHY: 1. Left main is with no significant angiographic disease. 2. Left anterior descending has mild irregularities, but no flow-limiting stenosis. 3. The left circumflex has a 70% stenosis in the mid vessel. An IFR was abnormal. 4. Right coronary is totally occluded. 5. Vein graft to the RCA is widely patent. Distal RCA is widely patent. PTCA STENT OF THE LEFT CIRCUMFLEX: The stent used was 2.75 x 14 mm Integrity. Result was 0% residual stenosis. OVERALL IMPRESSION: Successful percutaneous transluminal coronary angioplasty stent of the left circumflex going from 70% initial stenosis with an abnormal IFR to 0% residual. TRANSINT:[id number] Voice Confirmation ID: [id number] DOCUMENT ID: [id number] ANT ALFORD MD CC: [id number] DICTATION DATE: 08/14/19 1246 CONTINUOUS TOWEL ROLLER: 08/14/[address] [facility] [address] [place] [address]
--- NOTE | ~2019-08-14 | HEMODYNAMI ---
PATIENT:EUGENIA GUTIERREZ MEDICAL RECORD: [id number] : 45 LOCATION:[facility] ADMISSION DATE: 08/14/19 Generatedon:08/14/201912:51 Patient name: EUGENIA GUTIERREZ Patient #: [id number] SSN: [id number] : 1945 Date of study: 08/14/2019 Page: Of Hemodynamic Procedure Report Patient Data Patient Demographics First Name: EUGENIA Gender: Male Last Name: BRENDA : 1945 Patient #: [id number] Age: 73 year(s) Race: SSN: [id number] Additional ID: [id number] Contact details [address]: [address] [place] [address] COURT State: [place] City: [place] Zip code: [address] Past Medical History Allergies Allergen Reaction Date Comments Reported Other allergy 12/31/2018 shellfish, sulfa Other allergy 08/14/2019 Sulfa, PCN Admission Admission Data Admission Date: 08/14/2019 Admission Time: 8:50 Arrival Date: 08/14/2019 Arrival Time: 0:00 Admit Source: Other Insurance Payor: Medicare Height (in.): 68.9 BSA: 2.14 (m2) Height (cm.): 175 BMI: 32.33 (kg/m2) Weight (lbs.): 218.26 Weight (kg.): 99 Lab Results Lab Result Date: 08/14/2019 Lab Result Time: 0:00 Biochemistry Name Units Result Min Max BUN mg/dl 20 --(----)*- 7 18 Creatinine mg/dl 1.4 --(----)*- 0.6 1.3 eGFR ml/min 53 *-(----)-- 90 120 NONAFRICAN CBC Name Units Result Min Max Hemoglobin g/dl 14.3 --(*---)-- 13.5 17.5 Procedure Procedure Types Cath Procedure Diagnostic Procedure LHC LHC w/Coronaries FFR/IVUS FFR Initial Sedation Charges Moderate Sedation up to 30 minutes PCI Procedure Coronary Stent Coronary Stent Initial Hemochron ACT Test Procedure Description Procedure Date Procedure Date: 08/14/2019 Procedure Start Time: 12:31 Procedure End Time: 12:47 Procedure Staff Name Function Obed Pizarro MD Performing Physician Susanna Lei RT Monitor Zackary Anderson RN Nurse Jaqui Carpenter RT Scrub Procedure Data Cath Procedure Fluoroscopy Diagnostic fluoroscopy Total fluoroscopy Time: 3.3 time: 3.3 min min Diagnostic fluoroscopy Total fluoroscopy dose: 683 dose: 683 mGy mGy Contrast Material Contrast Material Type Amount (ml) Isovue 300 87 Entry Location Entry Primary Successful Side Size Upsize Upsize Entry Closure Succes sful Closure Location (Fr) 1 (Fr) 2 (Fr) Remarks Device Remarks Femoral Left 5 Fr 6 Fr Exoseal artery Short Estimated blood loss: 10 ml Diagnostic catheters Device Type Used For End Catheter Placement MULTIPACK Pigtail 5 Fr Ventriculography catheter MULTIPACK JL 4.0 5Fr Procedure catheter MULTIPACK 3DRC 5Fr Procedure catheter DIAGNOSTIC AR MOD 5Fr Procedure Catheter (397443W) Procedure Complications No complications Procedure Medications Medication Administration Route Dosage 0.9% NaCl I.V. 100 ml/hr Oxygen etCO2 Nasal cannula 2 l/min Heparin Flush Bag added to field 2 bags (1000units/500ml NS) Lidocaine 2% added to field 20 Versed I.V. 2 mg Fentanyl I.V. 100 mcg Versed I.V. 1 mg Heparin Bolus I.V. 4000 units Plavix P.O. 75 mg Hemodynamics Rest BSA: 2.14 (m2) O2 Consumption: Estimated: 291.04 (ml/min) O2 Consumption indexed : Estimated:136 (ml/min/m) Pre Cath Intra NCS Post Cath Vital Signs Time Heart Resp SPO2 etCO2 NIBP (mmHg) Rhythm Pain Sedation Rate (ipm) (%) (mmHg) Status Level (bpm) 12:18:58 71 7 98 36.2 183/82(142) NSR 0 (11) 10(A) , No pain 12:23:22 72 15 97 34.7 171/81(135) NSR 0 (11) 10(A) , No pain 12:27:40 72 13 97 37 161/79(128) NSR 0 (11) 10(A) , No pain 12:31:58 75 13 99 35.5 175/86(141) NSR 0 (11) 9(A) , No pain 12:36:22 77 14 97 0 167/81(122) NSR 0 (11) 9(A) , No pain 12:41:50 75 13 98 12.1 162/75(121) NSR 0 (11) 9(A) , No pain 12:45:44 80 15 99 37 186/141(181) NSR 0 (11) 10(A) , No pain Medications Time Medication Route Dose Verified Delivered Reason Notes Effectiveness by by 12:16:15 0.9% NaCl I.V. 100 Zackary Zackary Per physician ml/hr Monica Anderson RN RN 12:16:25 Oxygen etCO2 2 Zackary Zackary for low 02 sats Nasal l/min Monica Anderson cannula RN RN 12:16:36 Heparin Flush added 2 Zackary Zackary used for Bag to bags Moncia Anderson procedure (1000units/500ml field RN RN NS) 12:16:46 Lidocaine 2% added 20ml Zackary Zackary for local to vial Monica Anderson anesthetic field RN RN 12:24:35 Versed I.V. 2 mg Zackary Zackary for sedation Monica Anderson RN RN 12:24:44 Fentanyl I.V. 100 Zackary Zackary for sedation mcg Monica Anderson RN RN 12:31:41 Versed I.V. 1 mg Zackary Zackary for sedation Monica Anderson RN RN 12:41:19 Heparin Bolus I.V. 4000 Zackary Zackary for units Monica Anderson anticoagulation RN RN 12:48:33 Plavix P.O. 75 mg Zackary Zackary for Monica Anderson antiplatelet RN RN therapy Procedure Log Time Note 12:02:19 Patient Height : 68.9 inches 12:02:22 Patient Weight : 218.26 lbs 12:02:24 Admit Source: Other 12:02:27 Arrival Date: 08/14/2019 12:00:00 AM 12:02:50 Insurance Payor : Medicare 12:03:34 Lab Result : BUN 20 mg/dl 12:03:34 Lab Result : eGFR NONAFRICAN 53 ml/min 12:03:34 Lab Result : Hemoglobin 14.3 g/dl 12:03:34 Lab Result : Creatinine 1.4 mg/dl 12:04:18 Procedure Status Elective Heart Cath (OP). 12:04:21 Zackary Anderson RN sent for patient. Start room use. 12:04:22 Time tracking: Regular hours (M-F 7:00 - 5:00) 12:04:27 Plan of Care:Hemodynamics will remain stable., Cardiac rhythm will remain stable., Comfort level will be maintained., Respiratory function will remain adequate., Patient/ family verbilizes understanding of procedure., Procedure tolerated without complication., Recovers from procedure without complications.. 12:04:44 Patient received from Pre/Post Procedure Room to CCL 2 Alert and oriented. Tansferred to table in Supine position. 12:05:21 H&P Date Dictated: 07/16/2019 Within 30 days and on chart., H&P Addendum completed by physician on day of procedure. (MUST COMPLETE FOR ALL OUTPATIENTS). 12:05:22 Pre-procedure instructions explained to patient. 12:05:25 Family in waiting room. 12:05:27 Patient NPO since Midnight. 12:05:43 Patient allergic to Other allergySulfa, PCN 12:05:50 Is the patient allergic to Iodine/contrast media? Yes. 12:05:51 Was the patient premedicated? Yes 12:05:56 Is patient on blood thinner?Yes 12:06:15 ACC The patient was administered the following blood thiners within the last 24 hours: ACCPlavix 12:06:18 Patient diabetic? Yes. 12:06:19 If diabetic: On Metformin? Yes 12:06:24 If on Metformin: Last Dose? 08/13/2019 12:06:31 Snore? Yes 12:08:03 Sleep apnea? No 12:08:15 Airway obstruction? No ? 12:08:39 Patient pain scale 0/10 ?. 12:08:46 IV patent on arrival in left forearm with 0.9% NaCl at [facility]. 12:08:51 Lab results completed and on chart. 12:16:15 0.9% NaCl 100 ml/hr I.V. was administered by Zackary Anderson RN; Per physician; Verbal order read back and verified. 12:16:25 Oxygen 2 l/min etCO2 Nasal cannula was administered by Zackary Anderson RN; for low 02 sats; Verbal order read back and verified. 12:16:34 Stress Test: yes; abnormal inferior, latrally 12:16:36 Heparin Flush Bag (1000units/500ml NS) 2 bags added to field was administered by Zackary Anderson RN; used for procedure; Verbal order read back and verified. 12:16:46 Lidocaine 2% 20ml vial added to field was administered by Zackary Anderson RN; for local anesthetic; Verbal order read back and verified. 12:16:51 Vital chart was started 12:19:08 Risk of Mortality: .1 12:19:11 Risk of blood transfusion: .1 12:19:13 Risk of DANIEL: .7 12:19:17 Left groin area was prepped with chlora-prep and draped in sterile fashion 12:19:19 Alarms reviewed by R. N. 12:19:19 Sharps counted by scrub and verified by R.N. 12:24:12 Physician arrived 12:24:13 --------ALL STOP TIME OUT------ 12:24:14 Final Timeout: patient, procedure, and site verified with staff and physician. All members of the team are in agreement. 12:24:24 Left groin site verified by team. 12:24:28 Fire Safety Assessment: A--An alcohol-based skin anteseptic being used preoperatively., C--Open oxygen or nitrous oxide is being used., D--An ESU, laser, or fiber-optic light is being used. 12:24:32 Physical assessment completed. ASA score P 3 - A patient with severe systemic disease as per Obed Pizarro MD. 12:24:35 Versed 2 mg I.V. was administered by Zackary Anderson RN; for sedation; Verbal order read back and verified. 12:24:37 2) 60-89 Mildly reduced kidney function, and other findings (as for stage 1) point to kidney disease. 12:24:42 Maximum allowable contrast dose (3.7 X eGFR X 0.75)147 ml. 12:24:44 Fentanyl 100 mcg I.V. was administered by Zackary Anderson RN; for sedation; Verbal order read back and verified. 12:24:47 Sedation plan: IV Moderate Sedation Medication:Versed, Fentanyl 12:24:51 Use device set Femoral Dx 12:24:52 ACIST Syringe (57255) opened to sterile field. 12:24:52 Bag Decanter (2001S) opened to sterile field. 12:24:53 Medline Cath Pack ([id number]) opened to sterile field. 12:24:54 ACIST Hand Control (68227) opened to sterile field. 12:24:55 ACIST Manifold (00969) opened to sterile field. 12:24:55 DIAGNOSTIC Multipack 5Fr catheter set (SM4743) opened to sterile field. 12:24:58 SHEATH 5FR Engadine (UHH902) opened to sterile field. 12:24:59 EMERALD Guide Wire (122-013) opened to sterile field. 12:25:03 Tegaderm 4 x 4 (1626W) opened to sterile field. 12:27:31 Zero performed for pressure channel P1 12:31:04 Procedure started. 12:31:04 Full Disclosure recording started 12:31:17 Local anesthetic to left femerol artery with Lidocaine 2% by Obed Pizarro MD.INITIAL ACCESS ONLY 12:31:34 A 5 Fr sheath was inserted into the Left Femoral artery 12:31:41 Versed 1 mg I.V. was administered by Zackary Anderson RN; for sedation; Verbal order read back and verified. 12:31:52 A MULTIPACK Pigtail 5 Fr catheter was advanced over the wire and used for Ventriculography. 12:32:29 LV angiography performed. 12:32:58 LV gram done using STEPHENSON 12:33:07 Catheter removed. 12:33:13 EF : 65 % 12:33:21 A MULTIPACK JL 4.0 5Fr catheter was advanced over the wire and used for Procedure. 12:33:24 LCA angiography performed. 12:34:58 Catheter removed. 12:35:04 A MULTIPACK 3DRC 5Fr catheter was advanced over the wire and used for Procedure. 12:35:26 SVG to RCA angiography performed. 12:35:46 RCA angiography performed. 12:35:48 Catheter removed. 12:35:56 A DIAGNOSTIC AR MOD 5Fr Catheter ([id number]) was advanced over the wire and used for Procedure. 12:37:10 INFLATOR Merit BasixCompak (QF4432) opened to sterile field. 12:37:11 SHEATH 6FR Engadine (RAW793) opened to sterile field. 12:37:12 [place]oxbury Verrata Plus pressure wire (75315I) opened to sterile field. 12:37:23 SVG to RCA angiography performed. 12:37:24 Catheter removed. 12:37:32 Proceeding to intervention. 12:37:46 Sheath upsized to a 6 Fr Short. 12:37:55 GUIDE 6FR XBLAD 3.5 catheter ([id number]) opened to sterile field. 12:38:05 6 Fr XBLAD3.5 guide catheter was inserted over the wire 12:39:38 FFR/IFR wire advanced. 12:40:01 mCirc lesion measured at .87 with IFR 12:41:19 Heparin Bolus 4000 units I.V. was administered by Zackary Anderson RN; for anticoagulation; Verbal order read back and verified. 12:42:16 Place stent Inflation Number: 1 A INTEGRITY RX 2.75 x 14 stent ([id number]) was prepped and advanced across the Mid CX 70. The stent was deployed at 13 JOSE for 0:08 (min:sec) 0. 12:43:35 EXOSEAL 6Fr (EX600) opened to sterile field. 12:43:47 Wire removed. 12:43:48 Guide catheter removed. 12:43:58 Sheath removed intact; hemostasis achieved with Exoseal to the Left Femoral artery. 12:44:00 Procedure ended.(Physican Out) 12:44:12 Fluoroscopy time 03.30 minutes. 12:44:16 Fluoroscopy dose: 683 mGy 12:44:16 Flurop Dose total: 683 12:44:24 Dose Area Product 92441 mGy/cm. 12:45:20 Contrast amount:Isovue 300 87ml. 12:45:23 Maximum allowable dose exceeded? No. 12:45:24 Sharps counted by scrub and verified by R.N. 12:45:26 Insertion/operative site no bleeding no hematoma. 12:45:35 Post left femerol artery:stable 12:46:10 Post Procedure Pulses reassessed and unchanged 12:46:13 Post-procedure physical assessment completed. ASA score P 3 - A patient with severe systemic disease as per Obed Pizarro MD. 12:46:19 Post procedure rhythm: unchanged. 12:46:21 Estimated blood loss: 10 ml 12:46:23 Post procedure instruction explained to patient.Patient verbalizes understanding. 12:46:51 Procedure type changed to Cath procedure, Diagnostic procedure, LHC, [facility] w/Coronaries, FFR/IVUS, FFR Initial, Sedation Charges, Moderate Sedation up to 30 minutes, PCI procedure, Coronary Stent, Coronary Stent Initial, Hemochron ACT Test 12:46:57 Procedure Complication : No complications 12:46:59 Vital chart was stopped 12:47:03 [facility] Findings: MVD- MD will discuss options w/ pt 12:47:06 Operative report dictated upon procedure completion. 12:47:08 Report given to Pre/Post Procedure Room. 12:47:12 Patient transfered to Pre/Post Procedure Room with Stretcher. 12:47:16 Procedure ended. 12:47:16 Full Disclosure recording stopped 12:47:22 End room use (Document Last) 12:47:55 End room use (Document Last) 12:48:28 End room use (Document Last) 12:48:33 Plavix 75 mg P.O. was administered by Zackary Anderson RN; for antiplatelet therapy; Verbal order read back and verified. 12:49:59 ACT drawn and resulted at 204 seconds. (normal therapeutic range 180-240 seconds). Intervention Summary Intervention Notes Time ActionType Lesion and Equipment Action# Pressure Duration Attributes Used 12:42:16 Place stent Mid CX INTEGRITY RX 1 13 00:08 2.75 x 14 stent ([id number]) Device Usage Item Name Manufacture Quantity Catalog Hospital Part Current Mini mal Lot# / Number Charge Number Stock Stock Serial# Code ACIST Acist 1 23926 149386 055933 070458 20 Syringe Medical (84317) Systems Inc Bag Decanter Microtek 1 798600 81496 303133 5 () Medical Inc. Medline Cath Medline 1 [id number] 636393 79135 202380 5 Pack ([id number]) ACIST Hand Acist 1 75090 292762 673168 660788 5 Control Medical (88164) Systems Inc ACIST Acist 1 94269 093312 966442 867374 5 Manifold Medical (89691) Systems Inc DIAGNOSTIC Cardinal 1 GB2653 913776 39275 445415 30 COM [facility]istol [facility] 5Fr catheter set (KS2885) SHEATH 5FR Terumo 1 CFI614 094097 731285 457061 5 Engadine (LMZ440) EMERALD Cardinal 1 502-467 088860 593769 397540 5 Guide Wire Health (502455) Tegaderm 4 x 3M 1 1626W 031684 392678 237664 5 4 (1626W) MULTIPACK Cardinal 1 174935 5 Pigtail 5 Fr Health catheter MULTIPACK JL Cardinal 1 608802 5 4.0 5Fr Health catheter MULTIPACK Cardinal 1 137480 5 3DRC 5Fr Health catheter DIAGNOSTIC Cardinal 1 [id number] 057353 005027 704707 15 AR MOD 5Fr Health Catheter (120650K) INFLATOR Merit 1 AZ2033 672060 708109 579649 15 Merit Medical BasixCompak (BW6204) SHEATH 6FR Terumo 1 VTW501 530326 915845 204442 40 Engadine (VMS922) Roxbury Roxbury 1 69441E 112409 362147566 264766 5 Verrata Plus pressure wire (58620N) GUIDE 6FR Cardinal 1 [id number] 898760 230461 032536 10 XBLAD 3.5 Health catheter (42014947) INTEGRITY RX Medtronic 1 [id number] 674875 221817 773007 5 [id number] 2.75 x 14 stent ([id number]) EXOSEAL 6Fr Cardinal 1 EX600 174822 344048 813943 10 (EX600) Health Signature Audit [place] Stage Time Signature Unsigned Intra-Procedure 08/14/2019 Susanna Lei 12:47:55 PM RT(R) Intra-Procedure 08/14/2019 Zackary 12:48:28 PM Monica MARQUES Intra-Procedure 08/14/2019 Obed Pizarro 12:51:16 PM Signatures Performing Physician : Signature : Obed Pizarro MD Date : Time : Monitor : Susanna Lei Signature : RT Date : Time : Nurse : Zackary Lorigan Signature : RN Date : Time : [place] [address] [place] [address]
[2019-08-14 09:32] VITALS: BP 154/84; Ht 175.3 cm; Wt 99.5 kg
[2019-08-14 09:48] LABS: BASOPHILS 0.1 % (0-2); EOSINOPHILS 0 % (0-7); HEMATOCRIT 41.9 % (42.0-54.0); HEMOGLOBIN 14.3 g/dL (13.5-17.5); IMMATURE GRANULOCYTES 0.3 % (0-5); LYMPHOCYTES 6.5 % (15-50); MCH 29.9 pg (26.0-34.0); MCHC 34.1 g/dL (31.0-37.0); MCV 87.7 fL (80.0-100.0); MEAN PLATELET VOLUME 11.3 fL (7.4-10.4); MONOCYTES 0.9 % (2-11); NEUTROPHILS 92.2 % (40-80); PLATELET COUNT 190 10x3/uL (130-400); RBC 4.78 10x6/uL (4.20-6.10); RDW 12.3 % (11.5-14.5); WBC 10.1 10x3/uL (4.8-10.8)
[2019-08-14 10:13] LABS: ANION GAP 16.9 mmol/L (8-16); CALCIUM 8.7 mg/dL (8.5-10.1); CHOL - HDL RATIO 3.2 ratio (2.3-4.9); CREATININE - SERUM 1.4 mg/dL (0.6-1.3); LDL-HDL RATIO 1.8 ratio (1.5-3.5); POTASSIUM - SERUM 4.9 mmol/L (3.5-5.1)
--- NOTE | 2019-08-14 13:01 | NUR ---
PT ARRIVED BY STRETCHER. PLACED ON MONITORS. ASSESSMENT COMPLETED. FAMILY AT BEDSIDE. CALL LIGHT WITHIN REACH.
--- NOTE | 2019-08-14 13:15 | NUR ---
LEFT GROIN DRESSING C/D/I. NO S/S OF HEMATOMA NOTED. CALL LIGHT WITHIN REACH. FAMILY AT BEDSIDE. RESTING COMFORTABLY. DENIES PAIN AND NAUSEA AT THIS TIME.
--- NOTE | 2019-08-14 13:45 | NUR ---
PT RESTING COMFORTABLY. VSS. LEFT GROIN DRESSING C/D/I. NO S/S OF HEMATOMA NOTED. LEFT PEDAL PULSE PALPABLE.
--- NOTE | 2019-08-14 14:15 | NUR ---
LEFT GROIN DRESSING C/D/I. NO S/S OF HEMATOMA NOTED. CALL LIGHT WITHIN REACH. FAMILY AT BEDSIDE. NO NEEDS AT THIS TIME.
--- NOTE | 2019-08-14 14:45 | NUR ---
LEFT GROIN DRESSING C/D/I. NO S/S OF HEMATOMA NOTED. CALL LIGHT WITHIN REACH. FAMILY AT BEDSIDE. NO NEEDS AT THIS TIME.
--- NOTE | 2019-08-14 15:15 | NUR ---
LEFT GROIN DRESSING C/D/I. NO S/S OF HEMATOMA NOTED. CALL LIGHT WITHIN REACH. FAMILY AT BEDSIDE. DENIES PAIN AND NAUSEA AT THIS TIME. WILL CONTINUE TO MONITOR.
--- NOTE | 2019-08-14 16:00 | NUR ---
LEFT GROIN DRESSING C/D/I. NO S/S OF HEMATOMA NOTED. HEAD OF BED INC TO 30 DEGREES. TOLERATED WELL. PT SET UP WITH SANDWICH TRAY AND DRINK. DENIES NAUSEA/PAIN AT THIS TIME. WILL CONTINUE TO MONITOR.
--- NOTE | 2019-08-14 16:30 | NUR ---
LEFT GROIN DRESSING C/D/I. NO S/S OF HEMATOMA NOTED. PIV D/C'D WITH CATH TIP INTACT. TOLERATED WELL. PT INSTRUCTED TO GET UP AND DRESSED AT THIS TIME. FAMILY AT BEDSIDE WITH ASSIST.
--- NOTE | 2019-08-14 16:30 | NUR ---
DISCUSSED DISCHARGE INSTRUCTIONS WITH PT AND PT'S FAMILY. THEY VOICED UNDERSTANDING.
--- NOTE | 2019-08-14 16:40 | NUR ---
PT AMBULATED TO RESTROOM. VOIDED WITHOUT DIFFICULTY. STEADY GAIT NOTED. LEFT GROIN DRESSING C/D/I. NO S/S OF HEMATOMA NOTED.
--- NOTE | 2019-08-14 16:46 | NUR ---
PATIENT TRANSPORTED VIA WHEELCHAIR TO CAR WITH SPOUSE DRIVING, ALL BELONGINGS WITH PATIENT.
== END 2019-08-14 16:46 ==
LOC: D.CATH 08:50
PROVIDERS: ATTEND Internal Medicine Interventional Cardiology
DX: I25.119 Atherosclerotic heart disease of native coronary artery with unspecified angina pectoris (principal); E11.9 Type 2 diabetes mellitus without complications; Z79.84 Long term (current) use of oral hypoglycemic drugs; R06.09 Other forms of dyspnea; I10 Essential (primary) hypertension; E78.5 Hyperlipidemia, unspecified; I73.9 Peripheral vascular disease, unspecified

== ENCOUNTER → 2019-11-20 10:28 | Outpatient (CLI) | payer MEDICARE, OTHER ==
[2019-08-14 09:32] VITALS: BMI 32.4
[2019-11-20 11:26] LABS: CREATININE - SERUM 1.9 mg/dL (0.6-1.3)
== END | disposition home or self-care (01) ==
LOC: D.CT 10:28
PROVIDERS: ATTEND Internal Medicine Cardiovascular Disease
DX: I70.213 Atherosclerosis of native arteries of extremities with intermittent claudication, bilateral legs (principal)

== ENCOUNTER 2019-12-11 08:57 | Outpatient (CLI) | payer MEDICARE, OTHER ==
[~2019-12-11] VITALS: Ht 175.3 cm; Wt 99.2 kg
[2019-12-11] MEDS ORDERED: COZAAR100 MG PO (09:06)
[2019-12-11] MEDS ORDERED: NITROSTAT0.4 MG SL (09:07)
--- NOTE | 2019-12-11 09:20 | NUR ---
R AC 20GA IV SITED X 1 STICK, BLOOD DRAWN AT THAT TIME, FLUSHES EASLILY - NS AT 100ML/HR INITIALTED PER MD ORDER. C/L IN REACH.
[2019-12-11 09:31] VITALS: BP 145/56; Ht 175.3 cm; Wt 99.2 kg
[2019-12-11 09:40] LABS: ANION GAP 9.7 mmol/L (8-16); CALCIUM 7.7 mg/dL (8.5-10.1); CARBON DIOXIDE 27.3 mmol/L (21.0-32.0); CREATININE - SERUM 1.4 mg/dL (0.6-1.3)
--- NOTE | 2019-12-11 12:07 | NUR ---
PT TO BR INDEPENDENTLY. IV INFUSING WITHOUT DIFFICLTY. PT DENIES NEEDS. C/L IN REACH.
--- NOTE | 2019-12-11 13:15 | NUR ---
PT UP TO BR INDEPENDENTLY.
--- NOTE | 2019-12-11 13:20 | NUR ---
PT TO RADIOLOGY VIA W/C.
--- NOTE | 2019-12-11 13:40 | NUR ---
PT BACK FROM RADIOLOGY. RESUMED IVF PER MD ORDER. SANDWICH TRAY PROVIDED. C/L IN REACH.
--- NOTE | 2019-12-11 13:57 | NUR ---
IV PATENT. PT ATE ALL OF SANDWICH. DENIES OTHER NEEDS. C/L IN REACH.
--- NOTE | 2019-12-11 15:30 | NUR ---
PT UP TO BR INDEPENDENTLY. IV INFUSING WITHOUT DIFFICULTY. PT SITTING UP IN CHAIR. DENIES NEEDS. C/L IN REACH.
--- NOTE | 2019-12-11 16:50 | NUR ---
DISCHARGE INSTRUCTIONS REVIEWED WITH PT, INCLUDING S/S TO REPORT TO AND F/U APPT.
--- NOTE | 2019-12-11 17:08 | NUR ---
TEMP 97.5, B/P 170/72, HR 64, RR 17, POX 98% ON RA.
--- NOTE | 2019-12-11 17:25 | NUR ---
TRANSFUSION COMPLETE, NS 800ML TOTAL INFUSED. PT TO BR X 5 - EST 1500ML. PIV D/C'D INTACT, DSG APPLIED.
--- NOTE | 2019-12-11 17:30 | NUR ---
PT DISCHARGED VIA WC TO PRIVATE VEHICLE WITH ALL PAPER WORK AND BELONGINGS.
== END 2019-12-11 17:30 | disposition home or self-care (01) ==
LOC: D.CATH 08:57 → D.OPS 09:00 → D.CATH 09:00 → D.CT 13:30 → D.CATH 17:30
PROVIDERS: ATTEND Internal Medicine Cardiovascular Disease
DX: I70.213 Atherosclerosis of native arteries of extremities with intermittent claudication, bilateral legs (principal)

== ENCOUNTER → 2020-07-21 08:09 | Outpatient (CLI) | payer MEDICARE, OTHER ==
[2019-12-11 09:31] VITALS: BMI 32.3
[~2020-07-21 08:09] MED LIST changes: +COZAAR100 MG PO; +NITROSTAT0.4 MG SL
== END | disposition home or self-care (01) ==
LOC: D.HCCARDIO 07-12 10:00
PROVIDERS: ATTEND Internal Medicine Cardiovascular Disease
DX: I25.10 Atherosclerotic heart disease of native coronary artery without angina pectoris (principal)

== ENCOUNTER 2020-07-28 06:46 | Day surgery (SDC) | payer MEDICARE, OTHER ==
[~2020-07-28] VITALS: Ht 175.3 cm; Wt 98.3 kg
--- NOTE | ~2020-07-28 | HEMODYNAMI ---
PATIENT:EUGENIA GUTIERREZ MEDICAL RECORD: [id number] : 45 LOCATION:[facility] ADMISSION DATE: 07/28/20 Generatedon:19:06 Patient name: EUGENIA GUTIERREZ Patient #: [id number] SSN: [id number] : 1945 Date of study: 07/28/2020 Page: Of Hemodynamic Procedure Report Patient Data Patient Demographics Procedure consent was obtained First Name: EUGENIA Gender: Male Last Name: BRENDA : 1945 Patient #: [id number] Age: 74 year(s) Race: SSN: [id number] Additional ID: [id number] Contact details [address]: [address] [place] [address] [address] State: [place] City: [place] Zip code: [address] Past Medical History Performed procedures and imaging results Date Procedure Procedure Results Comments Stress testing Positive->Intermediate with SPECT MPI risk Allergies Allergen Reaction Date Comments Reported Other allergy 12/31/2018 shellfish, sulfa Other allergy 08/14/2019 Sulfa, PCN Other allergy 07/28/2020 SHELLFISH, SULFA Admission Admission Data Admission Date: 07/28/2020 Admission Time: 6:46 Arrival Date: 07/28/2020 Arrival Time: 0:00 Height (in.): 69 BSA: 2.1 (m2) Height (cm.): 175.26 BMI: 30.86 (kg/m2) Weight (lbs.): 209 Weight (kg.): 94.8 Procedure Procedure Types Cath Procedure Diagnostic Procedure LHC LHC w/Coronaries w/Grafts Sedation Charges Moderate Sedation 10-24 minutes Procedure Description Procedure Date Procedure Date: 07/28/2020 Procedure Start Time: 8:48 Procedure End Time: 9:03 Procedure Staff Name Function Lb Ring MD Performing Physician Kimberlyn Bautista RT Monitor Susanna Lei RT Scrub Zackary Anderson RN Nurse Procedure Data Cath Procedure Fluoroscopy Diagnostic fluoroscopy Total fluoroscopy Time: 1.9 time: 1.9 min min Diagnostic fluoroscopy Total fluoroscopy dose: 593 dose: 593 mGy mGy Contrast Material Contrast Material Type Amount (ml) Isovue 300 58 Entry Location Entry Primary Successful Side Size Upsize Upsize Entry Closure Succes sful Closure Location (Fr) 1 (Fr) 2 (Fr) Remarks Device Remarks Femoral Left 5 Fr Exoseal artery Estimated blood loss: 5 ml Diagnostic catheters Device Type Used For End Catheter Placement MULTIPACK JL 4.0 5Fr Procedure catheter DIAGNOSTIC AR1 MOD 5Fr Procedure catheter ([id number]) MULTIPACK Pigtail 5 Fr Procedure catheter Procedure Complications No complications Procedure Medications Medication Administration Route Dosage 0.9% NaCl I.V. 100 ml/hr Oxygen etCO2 Nasal cannula 2 l/min Heparin Flush Bag added to field 2 bags (1000units/500ml NS) Lidocaine 2% added to field 20 Versed I.V. 2 mg Fentanyl I.V. 100 mcg Versed I.V. 2 mg Hemodynamics Rest BSA: 2.1 (m2) O2 Consumption: Estimated: 244.61 (ml/min) O2 Consumption indexed: Estimated:116.48 (ml/min/m) Heart Rate: 74 (bpm) Pressure Samples Time Site Value (mmHg) Purpose Heart Use Rate(bpm) 8:57 LV 163/-4,15 Snapshot 74 8:58 AO 153/57(95) Pullback 73 8:58 LV 150/8,14 Pullback 73 Gradients Valve Time Site 1 Site 2 Mean SEP/DFP Peak To Heart Use (mmHg) (sec/min) Peak Rate (mmHg) (bpm) Aortic 8:58 LV AO 0 23 0 73 150/8,14 153/57(95) Calculations Valve P-P Mean Valve Index Valve Source Name Gradient Area Flow (cm2) Aortic 0 0 0 0 Snapshots Pre Cath Intra NCS Post Cath Vital Signs Time Heart Resp SPO2 etCO2 NIBP (mmHg) Rhythm Pain Sedation Rate (ipm) (%) (mmHg) Status Level (bpm) 8:34:23 71 19 97 0 176/85(152) NSR 0 (11) 10(A) , No pain 8:38:39 70 14 98 33.2 164/83(123) NSR 0 (11) 10(A) , No pain 8:42:52 72 15 98 35.4 155/73(143) NSR 0 (11) 10(A) , No pain 8:47:13 71 15 98 36.9 160/73(117) NSR 0 (11) 10(A) , No pain 8:56:54 73 16 98 29.4 161/77(114) NSR 0 (11) 10(A) , No pain 9:02:08 74 15 98 13.5 151/73(117) NSR 0 (11) 10(A) , No pain Medications Time Medication Route Dose Verified Delivered Reason Notes Effe ctiveness by by 8:34:49 0.9% NaCl I.V. 100 Zackary Zackary Per ml/hr Monica Anderson physician RN RN 8:34:59 Oxygen etCO2 2 Zackary Zackary for low 02 Nasal l/min Lorigan Lorigan sats cannula RN RN 8:35:10 Heparin Flush added 2 Zackary Zackary used for Bag to bags Lorigan Lorigan procedure (1000units/500ml field RN RN NS) 8:35:21 Lidocaine 2% added 20ml Zackary Zackary for local to vial Lorigan Lorigan anesthetic field RN RN 8:45:39 Versed I.V. 2 mg Zackary Zackary for Lorigan Lorigan sedation RN RN 8:45:47 Fentanyl I.V. 100 Zackary Zackary for mcg Lorigan Lorigan sedation RN RN 8:49:22 Versed I.V. 2 mg Zackary Zackary for Lorigan Lorigan sedation RN band presser Log Time Note 7:38:15 Informed consent obtained and on chart 7:38:37 Procedure Status Elective Heart Cath (OP). 7:38:37 Time tracking: Regular hours (M-F 7:00 - 5:00) 7:38:40 Plan of Care:Hemodynamics will remain stable., Cardiac rhythm will remain stable., Comfort level will be maintained., Respiratory function will remain adequate., Patient/ family verbilizes understanding of procedure., Procedure tolerated without complication., Recovers from procedure without complications.. 7:38:49 H&P Date Dictated: 07/07/2020 Within 30 days and on chart., H&P Addendum completed by physician on day of procedure. (MUST COMPLETE FOR ALL OUTPATIENTS). 7:39:08 Patient allergic to Other allergySHELLFISH, SULFA 7:41:53 Patient Weight : 209 lbs 7:41:57 Patient Height : 69 inches 7:42:01 Arrival Date: 07/28/2020 12:00:00 AM 8:15:44 Zackary Anderson RN sent for patient. Start room use. 8:24:54 Patient received from Pre/Post Procedure Room to CCL 2 Alert and oriented. Tansferred to table in Supine position. 8:24:56 Warm blankets applied, and aguila hugger turned on for patient comfort. 8:24:56 Correct patient and procedure confirmed by team. 8:24:56 ECG and BP/O2 sat monitors applied to patient. 8:33:11 Vital chart was started 8:33:39 Baseline sample Acquired. 8:34:10 Rhythm: sinus rhythm 8:34:11 Full Disclosure recording started 8:34:11 Pre-procedure instructions explained to patient. 8:34:17 Family unavailable. 8:34:19 Pre-op teaching completed and patient verbalized understanding. 8:34:21 Is the patient allergic to Iodine/contrast media? Yes. 8:34:22 Was the patient premedicated? Yes 8:34:25 Is patient on blood thinner?Yes 8:34:37 plavix taken 2 days ago 8:34:40 Patient diabetic? Yes. 8:34:45 If diabetic: On Metformin? Yes 8:34:49 0.9% NaCl 100 ml/hr I.V. was administered by Zackary Anderson RN; Per physician; Verbal order read back and verified. 8:34:49 If on Metformin: Last Dose? 07/27/2020 8:34:52 Previous problem with sedation/anesthesia? No ? 8:34:53 Snore? Yes 8:34:54 Sleep apnea? No 8:34:56 Deviated septum? No 8:34:56 Opens mouth fully? Yes 8:34:58 Sticks out tongue? Yes 8:34:59 Oxygen 2 l/min etCO2 Nasal cannula was administered by Zackary Anderson RN; for low 02 sats; Verbal order read back and verified. 8:34:59 Airway obstruction? No ? 8:35:01 Dentures? No ? 8:35:03 Pre procedure: left dorsailis pedis pulse 1+ Palpable, but thready & weak; easily obliterated 8:35:08 Patient pain scale 4/10 ?. 8:35:10 Heparin Flush Bag (1000units/500ml NS) 2 bags added to field was administered by Zackary Anderson RN; used for procedure; Verbal order read back and verified. 8:35:14 IV patent on arrival in left hand with 0.9% NaCl at [facility]. 8:35:21 Lidocaine 2% 20ml vial added to field was administered by Zackary Anderson RN; for local anesthetic; Verbal order read back and verified. 8:41:04 Stress Test: yes; abnormal INFERIOR AND LATERAL 8:41:07 Left groin area was prepped with chlora-prep and draped in sterile fashion 8:41:08 Alarms reviewed by R. N. 8:41:08 Sharps counted by scrub and verified by R.N. 8:41:11 Use device set Femoral Dx 8:41:12 ACIST Syringe ([id number]) opened to sterile field. 8:41:12 Bag Decanter (2002S) opened to sterile field. 8:41:13 ACIST Hand Control (00246) opened to sterile field. 8:41:14 ACIST Manifold (71811) opened to sterile field. 8:41:14 Tegaderm 4 x 4 (1626W) opened to sterile field. 8:41:15 Medline Cath Pack ([id number]) opened to sterile field. 8:41:16 DIAGNOSTIC Multipack 5Fr catheter set ([id number]) opened to sterile field. 8:41:17 SHEATH 5FR Alexander (ZOV912) opened to sterile field. 8:41:17 EMERALD Guide Wire (034-997) opened to sterile field. 8:44:21 --------ALL STOP TIME OUT------ 8:44:22 Final Timeout: patient, procedure, and site verified with staff and physician. All members of the team are in agreement. 8:44:23 Left groin site verified by team. 8:44:26 Fire Safety Assessment: A--An alcohol-based skin anteseptic being used preoperatively., C--Open oxygen or nitrous oxide is being used., D--An ESU, laser, or fiber-optic light is being used. 8:44:29 Physical assessment completed. ASA score P 2 - A patient with mild systemic disease as per Lb Ring MD. 8:44:36 Sedation plan: IV Moderate Sedation Medication:Versed, Fentanyl 8:44:40 3a) 45-59 Moderately reduced kidney function. 8:44:42 Maximum allowable contrast dose (3.7 X eGFR X 0.75)147 ml. 8:45:39 Versed 2 mg I.V. was administered by Zackary Anderson RN; for sedation; Verbal order read back and verified. 8:45:47 Fentanyl 100 mcg I.V. was administered by Zackary Anderson RN; for sedation; Verbal order read back and verified. 8:46:24 Zero performed for pressure channel P1 8:48:29 Procedure started. 8:48:52 Local anesthetic to left femerol artery with Lidocaine 2% by bL Ring MD.INITIAL ACCESS ONLY 8:49:22 Versed 2 mg I.V. was administered by Zackary Anderson RN; for sedation; Verbal order read back and verified. 8:51:26 A 5 Fr sheath was inserted into the Left Femoral artery 8:52:44 A MULTIPACK JL 4.0 5Fr catheter was advanced over the wire and used for Procedure. 8:54:10 LCA angiography performed. 8:54:13 Catheter exchanged over wire. 8:55:25 A DIAGNOSTIC AR1 MOD 5Fr catheter ([id number]) was advanced over the wire and used for Procedure. 8:55:49 RCA angiography performed. 8:56:42 SVG to RCA angiography performed. 8:56:42 Catheter exchanged over wire. 8:56:54 A MULTIPACK Pigtail 5 Fr catheter was advanced over the wire and used for Procedure. 8:57:21 LV gram done using STEPHENSON 8:57:25 Injector settings: Ml/sec: 10, Volume: 20, 8:57:45 LV hemodynamics recorded. 8:57:57 EF : 60 % 8:58:08 Catheter removed. 8:59:22 EXOSEAL 5Fr (EX500) opened to sterile field. 8:59:38 Sheath removed intact; hemostasis achieved with Exoseal to the Left Femoral artery. 9:00:13 Procedure ended.(Physican Out) 9:00:52 Contrast amount:Isovue 300 58ml. 9:00:54 Maximum allowable dose exceeded? No. 9:00:55 Sharps counted by scrub and verified by R.N. 9:00:58 Fluoroscopy time 01.90 minutes. 9:01:05 Flurop Dose total: 593 9:01:05 Fluoroscopy dose: 593 mGy 9:01:11 Dose Area Product 04682 mGy/cm. 9:01:15 Post-op/insertion site Left Femoral artery dressed using a 4 x 4 and Tegaderm. 9:02:43 Post-procedure physical assessment completed. ASA score P 2 - A patient with mild systemic disease as per Lb Ring MD. 9:02:50 Post procedure rhythm: sinus rhythm 9:02:52 Estimated blood loss: 5 ml 9:02:53 Post procedure instruction explained to patient.Patient verbalizes understanding. 9:02:53 Patient needs reinforcement of post procedure teaching. 9:03:06 Procedure type changed to Cath procedure, Diagnostic procedure, LHC, LHC w/Coronaries w/Grafts, Sedation Charges, Moderate Sedation 10-24 minutes 9:03:19 Procedure and supply charges have been captured, reviewed, submitted and are correct. 9:03:22 Procedure Complication : No complications 9:03:24 Vital chart was stopped 9:03:26 [facility] Findings: mild to moderate CAD (<70%) 9:03:27 Operative report dictated upon procedure completion. 9:03:27 See physician's report for complete and final results. 9:03:28 Report given to Pre/Post Procedure Room. 9:03:31 Patient transfered to Pre/Post Procedure Room with Bed. 9:03:32 Procedure ended. 9:03:32 Full Disclosure recording stopped 9:03:40 End room use (Document Last) 9:05:02 End room use (Document Last) 9:05:37 End room use (Document Last) Device Usage Item Name Manufacture Quantity Catalog Hospital Part Current Minimal L ot# / Number Charge Number Stock Stock Serial# Code ACIST Acist 1 56558 [id number] [id number] [id number] 20 Syringe Medical (15488) Systems Inc Bag Microtek 1 871255 85300 263688 5 Decanter Medical Inc. () ACIST Hand Acist 1 93309 895946 324038 000344 5 Control Medical (60258) Systems Inc ACIST Acist 1 86827 853184 987019 144502 5 Manifold Medical (22089) Systems Inc Tegaderm 4 3M 1 1626W 869046 742853 433860 5 x 4 (1626W) Medline Medline 1 [id number] 542467 53012 675109 5 Cath Pack ([id number]) DIAGNOSTIC Cardinal 1 NP1864 497785 16594 624921 30 Multipack Health 5Fr catheter set (FN4254) SHEATH 5FR Terumo 1 MEG594 574359 739267 844133 5 Alexander (JMI137) EMERALD Cardinal 1 502-968 282273 024917 529001 5 Guide Wire Health (502-985) MULTIPACK Cardinal 1 415270 5 JL 4.0 5Fr Health catheter DIAGNOSTIC Cardinal 1 [id number] 878917 632743 110237 15 AR1 MOD 5Fr Health catheter ([id number]) MULTIPACK Cardinal 1 455485 5 Pigtail 5 Health Fr catheter EXOSEAL 5Fr Cardinal 1 EX500 837298 441769 588495 10 (EX500) Health Signature Audit [place] Stage Time Signature Unsigned Intra-Procedure 07/28/2020 Kimberlyn Bautista 9:05:02 AM RT(R) Intra-Procedure 07/28/2020 Zackary 9:05:37 AM Monica MARQUES Intra-Procedure 07/28/2020 Lb Ring MD 9:06:08 AM Signatures Performing Physician : Signature : Lb Ring MD Date : Time : Monitor : Kimberlyn Bautista Signature : RT Date : Time : Nurse : Zackary Anderson Signature : RN Date : Time : [facility] [address], [place] [address]
[2020-07-28] MEDS ORDERED: PLAVIX75 MG PO (07:11)
[2020-07-28] MEDS ORDERED: GLIPIZIDE5 MG PO (07:12)
[2020-07-28 07:40] VITALS: BP 191/83; Ht 175.3 cm; Wt 98.3 kg
[2020-07-28 07:48] LABS: BASOPHILS 0.1 % (0-2); EOSINOPHILS 0 % (0-7); HEMATOCRIT 36.7 % (42.0-54.0); HEMOGLOBIN 12.3 g/dL (13.5-17.5); IMMATURE GRANULOCYTES 1.5 % (0-5); LYMPHOCYTES 8.5 % (15-50); MCH 27.5 pg (26.0-34.0); MCHC 33.5 g/dL (31.0-37.0); MCV 81.9 fL (80.0-100.0); MEAN PLATELET VOLUME 10.7 fL (7.4-10.4); MONOCYTES 2.7 % (2-11); NEUTROPHIL ABS# 8.16 10x3/uL (1.78-5.38); NEUTROPHILS 87.2 % (40-80); PLATELET COUNT 168 10x3/uL (130-400); RBC 4.48 10x6/uL (4.20-6.10); RDW 14.4 % (11.5-14.5); WBC 9.4 10x3/uL (4.8-10.8)
[2020-07-28 08:52] LABS: CALCIUM 8.2 mg/dL (8.5-10.1); CARBON DIOXIDE 23.5 mmol/L (21.0-32.0); CREATININE - SERUM 1.4 mg/dL (0.6-1.3); LDL-HDL RATIO 1.7 ratio (1.5-3.5); POTASSIUM - SERUM 4.5 mmol/L (3.5-5.1)
--- NOTE | 2020-07-28 09:15 | NUR ---
PT RECEIVED VIA STRETCHER BACK TO ROOM FOR RECOVERY. PT SLEEPING BUT VERBALLY AROUSABLE. NO C/O PAIN OR DISCOMFORT AT THIS TIME. L GROIN W 5FR EXOCELE, LG TEGADERM DRESSING CDI. SITE SOFT, DRESSING CDI NO S/S HEMATOMA OR BLEEDING NOTED. LEG PINK AND WARM, PEDAL PULSES PALPABLE. PT PLACED ON CARDIAC MONITORS AND O2 VIA NC AT 2L. IV PATENT INFUSING VIA L ARM PER ORDERS. CALL LIGHT IN REACH
--- NOTE | 2020-07-28 09:45 | NUR ---
PT RESTING COMFORTABLY. VSS AT PRESENT. L GROIN SOFT, DRESSING REMAINS CDI NO S/S HEMATOMA OR BLEEDING NOTED. IVF 100ML/HR FOR ELEVATED CREAT PER ORDERS. CALL LIGHT IN REACH
--- NOTE | 2020-07-28 10:30 | NUR ---
PT MORE AWAKE, L GROIN SOFT, NO S/S HEMATOMA OR BLEEDING. HOB ELEVATED SLIGHTLY. PT VOIDED 300 CC CLEAR YELLOW URINE VIA URINAL. PT OFFERED PO FLUIDS BUT DECLINES AT THIS TIME.
--- NOTE | 2020-07-28 10:50 | NUR ---
DR. EPPERSON AT , NO NEW ORDERS RECEIVED.
--- NOTE | 2020-07-28 11:15 | NUR ---
DISCHARGE INSTRUCTIONS REVIEWED W PT, HE VERBALIZED UNDERSTANDING. IV REMOVED W CATH INTACT, MONITORS REMOVED. PT TOLERATING PO FLUIDS AND SANDWICH. L GROIN SOFT, NO S/S HEMATOMA OR BLEEDING NOTED. DRESSING REMAINS CDI. PT UP TO DRESS FOR DISCHARGE
--- NOTE | 2020-07-28 11:30 | NUR ---
PT VOIDED 300 CC VIA URINAL. PT WAITING IN ROOM FOR RIDE TO ARRIVE.
--- NOTE | 2020-07-28 11:55 | NUR ---
PT DISCHARGED VIA WC TO FRIEND WAITING IN PRIVATE VEHICLE. PT HAD ALL BELONGINGS AND DISCHARGE PAPERWORK
== END 2020-07-28 11:55 | disposition home or self-care (01) ==
LOC: D.CATH 06:46
PROVIDERS: ATTEND Internal Medicine Cardiovascular Disease
DX: R06.00 Dyspnea, unspecified (principal); I25.118 Atherosclerotic heart disease of native coronary artery with other forms of angina pectoris; I73.9 Peripheral vascular disease, unspecified

== ENCOUNTER → 2020-11-09 08:59 | Outpatient (CLI) | payer MEDICARE, OTHER ==
[2020-07-28 07:40] VITALS: BMI 32.0
[~2020-11-09 08:59] MED LIST changes: +GLIPIZIDE5 MG PO
== END | disposition home or self-care (01) ==
LOC: D.CT 08:00
PROVIDERS: ATTEND Internal Medicine Cardiovascular Disease
DX: I70.203 Unspecified atherosclerosis of native arteries of extremities, bilateral legs (principal)